=== PATIENT | male | born 2000 | race Caucasian/White ===

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

== ENCOUNTER 2024-04-14 17:21 | Emergency (ER) | payer OTHER ==
[~2024-04-14] VITALS: Ht 188 cm; Wt 97.5 kg
[2024-04-14 17:27] VITALS: BP 188/95
[2024-04-14] MEDS ORDERED: Tetanus,Diphtheria Toxd Ped/Pf 0.5 ML VIAL IM ONE (17:35)
[2024-04-14] MEDS ORDERED: Morphine Sulfate 4 MG/1 ML Injection IV ONE (17:50)
[2024-04-14] MEDS ORDERED: Ondansetron HCl 2 MG / ML 2ML Vial IV ONE (17:50)
[2024-04-14] MEDS ORDERED: Diphth,Pertuss(Acell),Tet Vac 0.5 ML VIAL IM ONE (18:05)
[2024-04-14] MEDS ORDERED: CeFAZolin Sodium 2,000 MG in NS 100 ML IV ONE (18:25)
[2024-04-14] MEDS ORDERED: HYDROmorphone HCl/Pf 1MG SYR IV ONE (18:30)
[2024-04-14] MEDS ORDERED: RX Prepack 6 Tabs Oxycodone 5mg UD ONE (21:15)
[2024-04-14] MEDS ORDERED: Percocet 5-3251 EACH PO (21:17)
[2024-04-14] MEDS ORDERED: IBUP800 PO (21:17)
[2024-04-14] MEDS ORDERED: AMOCLA875 PO (21:17)
== END 2024-04-14 21:30 | disposition home or self-care (01) ==
LOC: ER 17:21
DX: S02.841A Fracture of lateral orbital wall, right side, initial encounter for closed fracture (principal); S00.431A Contusion of right ear, initial encounter; S80.11XA Contusion of right lower leg, initial encounter; H57.11 Ocular pain, right eye; R51.9 Headache, unspecified; V86.55XA Driver of 3- or 4- wheeled all-terrain vehicle (ATV) injured in nontraffic accident, initial encounter
CPT/HCPCS: 10140; 12013; 70480; 73590; 90471; 90702; 90715; 96365-59; 96375-59; 99285-25; A9270; J0690; J1171; J2270; J2405